=== PATIENT | female | born 1975 | race Caucasian/White ===

== ENCOUNTER 2018-01-25 12:54 | Emergency (ER) | payer MEDICAID ==
[~2018-01-25] VITALS: Ht 170.2 cm; Wt 97.5 kg
[2018-01-25 13:10] VITALS: Ht 170.2 cm; Wt 97.5 kg
[2018-01-25 17:26] VITALS: BP 120/77
== END 2018-01-25 17:26 | disposition home or self-care (01) ==
LOC: ED 12:54
DX: N39.0 Urinary tract infection, site not specified (principal)
CPT/HCPCS: J1885; Q0092

== ENCOUNTER 2018-05-28 23:19 | Emergency (ER) | payer MEDICAID ==
[~2018-05-28] VITALS: Ht 165.1 cm; Wt 100.4 kg
[2018-05-28 23:48] VITALS: BP 160/100; Ht 165.1 cm; Wt 100.4 kg
== END 2018-05-29 01:24 | disposition home or self-care (01) ==
LOC: ED 23:19
DX: S92.515A Nondisplaced fracture of proximal phalanx of left lesser toe(s), initial encounter for closed fracture (principal); F17.210 Nicotine dependence, cigarettes, uncomplicated; W22.8XXA Striking against or struck by other objects, initial encounter; Y93.89 Activity, other specified; Y92.89 Other specified places as the place of occurrence of the external cause; Y99.8 Other external cause status
CPT/HCPCS: Q0092